=== PATIENT | female | born 1985 | race Caucasian/White ===

== ENCOUNTER 2022-07-07 11:00 | Outpatient (RCR) | payer OTHER, SELFPAY | END 2022-09-25 11:24 | disposition home or self-care (01) | LOC: HO.OT 11:00 | PROVIDERS: Visit Provider Physician Assistant Surgical | DX: S62.201A Unspecified fracture of first metacarpal bone, right hand, initial encounter for closed fracture (principal); M67.834 Other specified disorders of tendon, left wrist | CPT/HCPCS: 97033; 97035; 97110; 97140; 97166 ==

== ENCOUNTER 2025-07-11 10:54 | Outpatient (AMB) | payer OTHER, SELFPAY ==
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
[2025-07-11 11:13] VITALS: BP 110/65; PULSE 78; TEMP 37.3; O2SAT 98; BMI 28.6
== END 2025-07-11 12:16 | disposition home or self-care (01) ==
PROVIDERS: Visit Provider Physician Assistant
DX: S06.0X0A Concussion without loss of consciousness, initial encounter (principal); V89.2XXA Person injured in unspecified motor-vehicle accident, traffic, initial encounter; M54.2 Cervicalgia